=== PATIENT | female | born 1990 | race Caucasian/White ===

== ENCOUNTER 2017-03-13 11:29 | Emergency (ER) | payer MEDICAID ==
[~2017-03-13] VITALS: Ht 160 cm; Wt 94.8 kg
[2017-03-13 11:31] VITALS: BP 120/79
== END 2017-03-13 12:52 | disposition home or self-care (01) ==
LOC: ED 11:43
DX: S43.421A Sprain of right rotator cuff capsule, initial encounter (principal); X58.XXXA Exposure to other specified factors, initial encounter; Y93.89 Activity, other specified; Y99.8 Other external cause status; Y92.89 Other specified places as the place of occurrence of the external cause
CPT/HCPCS: 93005; 99284

== ENCOUNTER 2018-01-04 20:17 | Emergency (ER) | payer MEDICAID ==
[~2018-01-04] VITALS: Ht 162.6 cm; Wt 105.5 kg
[~2018-01-04 20:17] MED LIST: OMEP40CA6 PO; ONDA4TAB10 PO
[2018-01-04 20:21] VITALS: BP 119/79
[2018-01-04] MEDS ORDERED: HYDROcodone/APAP 5/325 TABLET PO STA (20:53)
[2018-01-04] MEDS ORDERED: HYDROcodone/APAP 5/325 TABLET ONE (21:00)
== END 2018-01-04 21:43 | disposition home or self-care (01) ==
LOC: ED 21:00
DX: S93.491A Sprain of other ligament of right ankle, initial encounter (principal); X50.1XXA Overexertion from prolonged static or awkward postures, initial encounter; Y93.89 Activity, other specified; Y92.89 Other specified places as the place of occurrence of the external cause; Y99.8 Other external cause status
CPT/HCPCS: 99284

== ENCOUNTER 2018-10-17 12:28 | Emergency (ER) | payer MEDICAID ==
[~2018-10-17] VITALS: Ht 160 cm; Wt 107.3 kg
--- NOTE | 2018-10-17 13:55 | NUR ---
PT AMBULATORY TO ROOM FROM LOBBY, UPRIGHT STEADY GAIT.
[2018-10-17] MEDS ORDERED: METOCLOPRAMIDE 5 MG/ML, 2ML ONE (14:23)
[2018-10-17] MEDS ORDERED: DIPHENHYDRAMINE 25 MG CAPSULE ONE (14:23)
[2018-10-17] MEDS ORDERED: KETOROLAC 30 MG/1 ML ONE (14:23)
[2018-10-17] MEDS ORDERED: DIPHENHYDRAMINE 25 MG CAPSULE PO ONE (14:30)
[2018-10-17] MEDS ORDERED: METOCLOPRAMIDE 5 MG/ML, 2ML IVPush ONE (14:30)
[2018-10-17] MEDS ORDERED: KETOROLAC 30 MG/1 ML IVPush ONE (14:30)
[2018-10-17 14:39] LABS: HCG UR SG 1.024 (1.003-1.030)
[2018-10-17 14:48] LABS: MICROSCOPIC NOT IND
[2018-10-17 14:56] LABS: CULTURE INDICATED? NO
[2018-10-17 15:14] VITALS: BP 116/94
--- NOTE | 2018-10-17 15:14 | NUR ---
PT SLEEPING RESP EVEN NON-LABORED. ARROUSES TO VERBAL STIM. DENIES ANY SHABAZZ PAIN AT THIS TIME. CHART UP FOR RECHECK
--- NOTE | 2018-10-17 15:37 | NUR ---
Patient/Caregiver given discharge instructions and they have confirmed that they understand the instructions. Patient ambulatory with steady gait.
== END 2018-10-17 15:38 | disposition home or self-care (01) ==
LOC: ED 15:35
DX: R51 Headache (principal)
CPT/HCPCS: 81003; 81025; 96374; 96375; 99283; J1885; J2765; Q0163

== ENCOUNTER 2019-02-08 11:11 | Emergency (ER) | payer MEDICAID ==
[~2019-02-08] VITALS: Ht 162.6 cm; Wt 103.9 kg
[2019-02-08 12:57] VITALS: BP 99/70
== END 2019-02-08 13:25 | disposition home or self-care (01) ==
LOC: ED 12:13
DX: O26.892 Other specified pregnancy related conditions, second trimester (principal); M54.5 Low back pain; R11.0 Nausea; Z3A.15 15 weeks gestation of pregnancy
CPT/HCPCS: 36415; 76815; 80048; 81001; 82040; 84702; 85025; 87086; 99284